=== PATIENT | female | born 1975 | race Caucasian/White ===

== ENCOUNTER 2017-04-30 16:00 | Emergency (ER) | payer MEDICAID, OTHER ==
[~2017-04-30] VITALS: Ht 160 cm; Wt 78.0 kg
[~2017-04-30 16:00] MED LIST: CAPT12.52 PO; METO25TA7 PO
[2017-04-30 16:03] VITALS: Ht 160 cm; Wt 78.0 kg
[2017-04-30] MEDS ORDERED: morphine 4 MG/ML VIAL IV STA (16:39)
[2017-04-30] MEDS ORDERED: SOD CHLORIDE 0.9% 100 ML IV STA (16:39)
[2017-04-30] MEDS ORDERED: ONDANSETRON 4 MG INJ IV STA (16:39)
--- NOTE | 2017-04-30 16:47 | ERD ---
ER Documentation Chief Complaint Date/Time DATE: 04/30/17 TIME: 16:30 Chief Complaint HEADACHE, ABDOMINAL PAIN AND CHEST PAIN X 3 DAYS HPI 41-year-old female history of hypertension and type 2 diabetes mellitus presents to the ED complaining of a 3 day history of worsening, generalized, crampy, nonradiating abdominal pain which localizes to the epigastrium with nausea and one episode of nonbloody, nonbilious emesis and several episodes of watery, nonbloody, nonmucoid diarrhea. Polyuria but no dysuria or hematuria. No relieving or exacerbating factors. No ill contacts, recent travel or spelled food exposure. Denies chest pain or palpitations. No shortness of breath or cough. Mild, gradual onset, generalized headache but no neck or back pain. No visual changes, focal weakness or numbness. No skin rash. No anorexia, night sweats or weight loss. No fevers or chills. ROS All systems reviewed and are negative except as per history of present illness. Medications Home Meds Active Scripts Ondansetron Hcl* (Zofran*) 4 Mg Tablet, 4 MG PO Q6H for NAUSEA AND/OR VOMITING, #12 TAB Prov:BETH LAWRENCE MD 04/30/17 Pantoprazole* (Protonix*) 40 Mg Tablet.dr, 40 MG PO DAILY, #14 TAB Prov:BETH LAWRENCE MD 04/30/17 Reported Medications Acetaminophen/Aspirin/Caffeine* (Excedrin*) 1 Tab Tab, 1 TAB PO DAILY Y for MIGRAINE, TAB 04/30/17 Ibuprofen* (Ibuprofen*) 400 Mg Tablet, 400 MG PO Q6H Y for PAIN, TAB 04/30/17 Metformin* (Glucophage*) 500 Mg Tab, 500 MG PO WITH BREAKFAST, #30 TAB 04/30/17 Discontinued Reported Medications Captopril* (Captopril*) Unknown Strength Tablet, PO TID, #90 TAB 05/04/16 Metoprolol Succinate* (Toprol XL*) Unknown Strength Tab.sr.24h, PO DAILY, #90 TAB 05/04/16 Allergies Allergies: Coded Allergies: No Known Drug Allergies (Verified Allergy, Unknown, 04/30/17) PMhx/Soc Reviewed in chart. As per HPI. History of Surgery: Yes (hysterectomy, pacemaker with subsequent removal, breast biopsy) Anesthesia Reaction: No Hx Neurological Disorder: No Hx Respiratory Disorders: No Hx Cardiac Disorders: No Hx Psychiatric Problems: No Hx Miscellaneous Medical Probl: Yes (le varicesm, sinusitis, dm) Hx Alcohol Use: No Hx Substance Use: No Hx Tobacco Use: No Smoking Status: Unknown if ever smoked FmHx Father: Cancer. No family history of diabetes or stroke Physical Exam Vitals Vital Signs Date Time Temp Pulse Resp B/P Pulse Ox O2 Delivery O2 Flow Rate FiO2 04/30/17 19:32 97.8 80 12 117/69 100 Room Air 04/30/17 18:18 70 20 128/71 100 Room Air 04/30/17 16:46 86 22 119/67 100 Room Air 04/30/17 16:03 97.4 83 18 122/60 99 Physical Exam Const: Alert, mild distress due to pain. Head: Atraumatic Eyes: Normal Conjunctiva. Anicteric. ENT: Normal External Ears, Nose and Mouth. Neck: Full range of motion. Nontender. No JVD. Resp: Breath sounds are equal and clear to auscultation bilaterally Cardio: Regular rate and rhythm, no murmurs Abd: Soft, obese, mild epigastric and right upper quadrant tenderness. Negative La sign. No right or left lower quadrant tenderness. non distended. Normal bowel sounds Skin: No petechiae or rashes Back: No midline or flank tenderness Ext: No cyanosis, or edema Neur: Awake and alert. No focal deficit observed. Psych: Normal Mood and Affect Result Diagram: 04/30/17 1710 04/30/17 1710 Results 24 hrs Laboratory Tests Test 04/30/17 17:10 White Blood Count 8.910^3/ul Red Blood Count 4.8310^6/ul Hemoglobin 13.7g/dl Hematocrit 42.0% Mean Corpuscular Volume 87.0fl Mean Corpuscular Hemoglobin 28.4pg Mean Corpuscular Hemoglobin Concent 32.6g/dl Red Cell Distribution Width 13.3% Platelet Count 58987^3/UL Mean Platelet Volume 9.6fl Neutrophils % 58.1% Lymphocytes % 34.6% Monocytes % 5.2% Eosinophils % 1.2% Basophils % 0.6% Nucleated Red Blood Cells % 0.0/100WBC Neutrophils # 5.210^3/ul Lymphocytes # 3.110^3/ul Monocytes # 0.510^3/ul Eosinophils # 0.110^3/ul Basophils # 0.110^3/ul Nucleated Red Blood Cells # 0.010^3/ul Urine Color YELLOW Urine Clarity CLOUDY Urine pH 5.0 Urine Specific [place] 1.032 Urine Ketones NEGATIVEmg/dL Urine Nitrite NEGATIVEmg/dL Urine Bilirubin NEGATIVEmg/dL Urine Urobilinogen NEGATIVEmg/dL Urine Leukocyte Esterase NEGATIVELeu/ul Urine Microscopic RBC 2/HPF Urine Microscopic WBC 1/HPF Urine Squamous Epithelial Cells MODERATE/HPF Urine Mucus MODERATE/HPF Urine Hemoglobin NEGATIVEmg/dL Urine Glucose NEGATIVEmg/dL Urine Total Protein NEGATIVEmg/dl Sodium Level 141mmol/L Potassium Level 3.5mmol/L Chloride Level 104mmol/L Carbon Dioxide Level 26mmol/L Anion Gap 15 Blood Urea Nitrogen 16mg/dl Creatinine 0.72mg/dl Glucose Level 97mg/dl Calcium Level 9.5mg/dl Total Bilirubin 0.1mg/dl Direct Bilirubin 0.00mg/dl Indirect Bilirubin 0.1mg/dl Aspartate Amino Transf (AST/SGOT) 22IU/L Alanine Aminotransferase (ALT/SGPT) 38IU/L Alkaline Phosphatase 86IU/L Troponin I < 0.012ng/ml Total Protein 8.1g/dl Albumin 4.8g/dl Globulin 3.30g/dl Albumin/Globulin Ratio 1.45 Lipase 245U/L Current Medications Medications (Trade) Dose Ordered Sig/Tova Route PRN Reason Start Time Stop Time Status Last Admin Dose Admin Sodium Chloride (NS) 100 ml @ 100 mls/hr Q1H STAT IV 04/30/17 16:39 04/30/17 17:38 DC Morphine Sulfate (morphine) 4 mg ONCE STAT IV 04/30/17 16:39 04/30/17 16:42 DC Ondansetron HCl (Zofran Inj) 4 mg ONCE STAT IV 04/30/17 16:39 04/30/17 16:42 DC 04/30/17 17:03 Pantoprazole 40 mg 40 mg ONCE ONCE IV 04/30/17 17:00 04/30/17 17:01 DC 04/30/17 17:03 Sodium Chloride (NS) 1,000 ml @ 1,000 mls/hr Q1H STAT IV 04/30/17 16:56 04/30/17 17:55 DC 04/30/17 17:02 IV Flush 10 ml 10 ml STK-MED ONCE .ROUTE 04/30/17 19:02 04/30/17 19:03 DC 04/30/17 19:15 Sodium Chloride (NS) 100 ml @ ud STK-MED ONCE .ROUTE 04/30/17 19:03 04/30/17 19:04 DC 04/30/17 19:16 Iodixanol (Visipaque Locm) 100 ml STK-MED ONCE .ROUTE 04/30/17 19:03 04/30/17 19:04 DC 04/30/17 19:16 EKG: TIME: 16:07. Sinus rhythm. Ventricular rate 82. Right axis deviation. Normal [place] QRS. No ST segment elevation or depression. EP Interpretation: Borderline ECG. IMAGING: PROCEDURE: US Abdomen Limited . CLINICAL INDICATION: Abdominal pain TECHNIQUE: Multiple real-time images were acquired of the patient's right upper quadrant abdomen utilizing a high resolution transducer. COMPARISON: None FINDINGS: The liver measures 20.1 cm and demonstrates a coarsened echogenicity. The gallbladder is filled with a small amount of bile. No shadowing echogenic stones or masses are seen in the gallbladder. The gallbladder wall is not thickened at 1.3 mm. No pericholecystic fluid is noted. The common bile duct measures 3.0 mm in diameter. The visualized portions of the proximal pancreas are unremarkable. The tail of the pancreas is not well visualized. Antegrade flow is seen in the portal vein. Right kidney measures 9.4 cm. Right kidney demonstrates a normal echogenicity. No hydronephrosis, masses or stones are noted. IMPRESSION: Diffuse fatty infiltration of a mildly enlarged liver. Contracted, but otherwise unremarkable gallbladder. Tail of the pancreas not well visualized. If characterization of this structure is needed repeat exam or CT/MRI is recommended. RPTAT: AA .Manish Abarca MD, Date Time Electronically viewed and signed by .Manish Abarca MD, MD on 04/30/2017 17:11 .P/ PROCEDURE: CT Abdomen and Pelvis with contrast. CLINICAL INDICATION: Abdominal pain. TECHNIQUE: CT scan of the abdomen and pelvis with contrast was performed on a multi-detector high-resolution CT scanner. The patient was scanned following the uncomplicated intravenous administration of 100 cc of Visipaque 320. Coronal and sagittal reformatted images were obtained from the axial source images. One or more of the following dose reduction techniques were used: Automated exposure control, adjustment of the mA and/or kV according to patient size, use of iterative reconstruction technique. Images were reviewed on a high -resolution PACS workstation. The total exam CTDI equals 14.44 mGy and the total exam DLP equals 780.59 mGy-cm. COMPARISON: None available. FINDINGS: CT abdomen: Minimal bilateral lower lobe dependent atelectatic changes are present. Otherwise, the lung bases are clear. The heart size is normal, without pericardial thickening or effusion. The liver is enlarged measuring 20 cm without focal mass or intrahepatic biliary dilatation. The spleen is normal in size and homogeneous in density. The stomach is partially collapsed, but is grossly unremarkable. The pancreas as visualized is normal. The gallbladder is unremarkable. The biliary tree is unremarkable without evidence for biliary dilatation. The adrenal glands are symmetric and normal. The kidneys are unremarkable. No renal calculus or obstructive uropathy or mass lesion is seen. The aorta is of normal caliber. There is no retroperitoneal lymphadenopathy. The ishaan hepatis region is clear. The small bowel and mesentery, as visualized , are unremarkable. CT pelvis: The small bowel loops situated within the pelvis are unremarkable. The uterus is surgically absent. There is a 4.5 x 8.0 x 4.4 cm rodriguez-shaped cystic lesion in the right adnexa, likely arising from the right ovary. The left ovary appears unremarkable. The pelvic sidewalls and inguinal regions are clear. The sigmoid colon and rectum are unremarkable. The appendix appears normal. The tip of the appendix abuts the above described mimics a cystic lesion. The cystic lesion most likely arises from the right ovary, less likely from the tip of the appendix. No solid mass, lymphadenopathy, or free fluid is seen. The bladder is normal. The surrounding osseous structures are unremarkable. No osteolytic or osteoblastic lesion is detected. IMPRESSION: 1. Status post hysterectomy with 4.5 x 8.0 x 4.4 cm right adnexal cystic lesion which most likely arises from the right ovary, less likely from the tip of the appendix (which is otherwise normal appearing). Initial further evaluation with ultrasound or pelvic MRI with contrast is recommended. 2. Hepatomegaly. RPTAT: QQ .Jiame Wilcox MD, MD Date Time Electronically viewed and signed by .Jaime Wilcox MD, MD on 04/30/2017 19:31 .A/ PROCEDURE: US Non-OB Pelvis. CLINICAL INDICATION: Abdominal pain, history of hysterectomy and left oophorectomy. TECHNIQUE: Multiple sonographic images of the pelvis were obtained utilizing a transabdominal and endovaginal technique. The images were reviewed on a PACS workstation. COMPARISON: None. FINDINGS: The uterus and left ovary are not visualized. A normal right ovary is not visualized There is a 7.1 x 3.7 x 6.4 cm simple cyst in the right adnexa with peripheral vascularity. There is no evidence of free fluid. IMPRESSION: 1. A normal right ovary is not visualized. There is a 7.1 cm simple right adnexal cyst with peripheral vascularity, possibly a right ovarian cyst. 2. Status post hysterectomy and left oophorectomy. RPTAT: HTAR .Jeanmarie William MD, Date Time Electronically viewed and signed by .Jeanmarie William MD, on 04/30/2017 21:04 .R/ Procedures/MDM DOCUMENTS REVIEWED: ED nurse, prior ED ED COURSE: Normal saline 1 L. Zofran 4 mg IV and Protonix 40 mg IV. Refused morphine. REEXAMINATION/REEVALUATION: Time: 18:00. Doing well. Feels better but still feels distended. MEDICAL DECISION MAKIN-year-old female history of hypertension and type 2 diabetes mellitus presents to the ED complaining of a 3 day history abdominal pain with nausea, vomiting and diarrhea. Triage note indicated chest pain however the patient denied this and localizes her pain to the epigastrium. Ultrasound reveals fatty liver but no evidence of cholelithiasis or cholecystitis. No CT evidence of acute intra-abdominal process including but not limited to obstruction, appendicitis, diverticulitis, mass or mesenteric ischemia. Abdominal exam is benign without rebound, guarding or signs of peritonitis. Possible gastritis/GERD as her symptoms improved with proton pump inhibitors. Possible mild gastroenteritis likely viral although foodborne illness and bacterial etiologies were considered. Right ovarian cyst without evidence of torsion. No chest pain, ischemic EKG changes or other signs of acute coronary syndrome. Mild cephalgia resolved. Presentation not consistent with subarachnoid hemorrhage, there are no focal deficits or indication for neuroimaging. Stable for discharge with proton pump inhibitors, precautionary instructions and outpatient follow-up as counseled. Counseled patient and family regarding diagnostic workup, diagnosis and need for followup. Understands to return to ED if symptoms recur, worsen or any other concerns. Departure Diagnosis: Primary Impression: Acute generalized abdominal pain Additional Impressions: Abdominal pain of unknown etiology Right ovarian cyst Acute gastritis without bleeding Gastritis type: unspecified gastritis Qualified Code: K29.00 - Acute gastritis without hemorrhage, unspecified gastritis type Condition: Stable (Improved) BETH LAWRENCE MD Apr 30, 2017 16:47
[2017-04-30] MEDS ORDERED: IBUP400T22 PO (16:50)
[2017-04-30] MEDS ORDERED: EXCED PO (16:50)
[2017-04-30] MEDS ORDERED: METF500T4 PO (16:50)
[2017-04-30] MEDS ORDERED: SOD CHLORIDE 0.9% 1,000 ML IV STA (16:56)
[2017-04-30] MEDS ORDERED: PANTOPRAZOLE 40 MG INJ IV ONE (17:00)
--- NOTE | 2017-04-30 17:11 | RADRPT ---
PROCEDURE: US Abdomen Limited . CLINICAL INDICATION: Abdominal pain TECHNIQUE: Multiple real-time images were acquired of the patient's right upper quadrant abdomen u tilizing a high resolution transducer. COMPARISON: None FINDINGS: The liver measures 20.1 cm and demonstrates a coarsened echogenicity. The gallbladder is filled with a small amount of bile. No shadowing echogenic stones or masses are seen in the gallbladder. The g allbladder wall is not thickened at 1.3 mm. No pericholecystic fluid is noted. The common bile duct measures 3.0 mm in diameter. The visualized portions of the proximal pancreas are unremarkable. The tail of the pancreas is not well visualized. Antegrade flow is seen in the portal vein. Right kidney measures 9.4 cm. Right kidney demonstrates a normal echogenicity. No hydronephrosis, masses or stones are noted. IMPRESSION: Diffuse fatty infiltration of a mildly enlarged liver. Contracted, but otherwise unremarkable gallbladder. Tail of the pancreas not well visualized. If characterization of this structure is needed repeat exa m or CT/MRI is recommended. RPTAT: AA .Manish Abarca MD, MD Date Time Electronically viewed and signed by .Manish Abarca MD, MD on 04/30/2017 17:11 .P/
[2017-04-30 17:23] LABS: BASOPHIL # 0.1 10^3/ul (0.0-0.1); BASOPHILS % 0.6 % (0.0-2.0); EOSINOPHILS # 0.1 10^3/ul (0.0-0.5); EOSINOPHILS % 1.2 % (0.0-7.0); HEMOGLOBIN 13.7 g/dl (12.0-16.0); LYMPHOCYTES # 3.1 10^3/ul (0.8-2.9); LYMPHOCYTES % 34.6 % (15.0-51.0); MEAN CORPUSCULAR HEMOGLOBIN 28.4 pg (29.0-33.0); MEAN CORPUSCULAR HGB CONC 32.6 g/dl (32.0-37.0); MEAN PLATELET VOLUME 9.6 fl (7.4-10.4); MONOCYTE # 0.5 10^3/ul (0.3-0.9); MONOCYTES % 5.2 % (0.0-11.0); NEUTROPHIL # 5.2 10^3/ul (1.6-7.5); NEUTROPHILS % 58.1 % (39.0-77.0); PLATELET COUNT 394 10^3/UL (140-415); RED BLOOD COUNT 4.83 10^6/ul (4.20-5.40); RED CELL DISTRIBUTION WIDTH 13.3 % (11.5-14.5); WHITE BLOOD COUNT 8.9 10^3/ul (4.8-10.8)
[2017-04-30 17:37] LABS: ADD UMIC YES; UR ASCORBIC ACID 40 mg/dL (NEGATIVE); UR BILIRUBIN (Dip) NEGATIVE (NEGATIVE); UR BLOOD (Dip) NEGATIVE (NEGATIVE); UR CLARITY CLOUDY (CLEAR); UR COLOR YELLOW (YELLOW); UR GLUCOSE (Dip) NEGATIVE (NEGATIVE); UR KETONES (Dip) NEGATIVE (NEGATIVE); UR LEUKOCYTE ESTERASE (Dip) NEGATIVE Leu/ul (NEGATIVE); UR MUCUS MODERATE /HPF (NONE SEEN); UR NITRITE (Dip) NEGATIVE (NEGATIVE); UR RBC 2 /HPF (0-5); UR SPECIFIC GRAVITY (Dip) 1.032 (1.003-1.030); UR SQUAMOUS EPITHELIAL CELL MODERATE /HPF (FEW); UR TOTAL PROTEIN (Dip) NEGATIVE (NEGATIVE); UR UROBILINOGEN (Dip) NEGATIVE (NEGATIVE)
[2017-04-30 17:39] LABS: ADD SCAN DIFF NO
[2017-04-30 17:47] LABS: ALANINE AMINOTRANSFERASE 38 IU/L (13-69); ALBUMIN 4.8 g/dl (3.3-4.9); ALBUMIN/GLOBULIN RATIO 1.45; ALKALINE PHOSPHATASE 86 IU/L (42-121); ANION GAP 15 (8-16); ASPARTATE AMINO TRANSFERASE 22 IU/L (15-46); BILIRUBIN,INDIRECT 0.1 mg/dl (0-1.1); BILIRUBIN,TOTAL 0.1 mg/dl (0.2-1.3); BLOOD UREA NITROGEN 16 mg/dl (7-20); CALCIUM 9.5 mg/dl (8.4-10.2); CARBON DIOXIDE 26 mmol/L (21-31); CHLORIDE 104 mmol/L (97-110); CREATININE 0.72 mg/dl (0.44-1.00); GLUCOSE 97 mg/dl (70-220); POTASSIUM 3.5 mmol/L (3.5-5.1); SODIUM 141 mmol/L (135-144); TOTAL PROTEIN 8.1 g/dl (6.1-8.1)
[2017-04-30 18:01] LABS: TROPONIN-I < 0.012 ng/ml (0.00-0.12)
[2017-04-30] MEDS ORDERED: SOD CHLORIDE 0.9% 100 ML ONE (19:03)
[2017-04-30] MEDS ORDERED: IODIXANOL LOCM 100 ML BTL ONE (19:03)
--- NOTE | 2017-04-30 19:31 | RADRPT ---
PROCEDURE: CT Abdomen and Pelvis with contrast. CLINICAL INDICATION: Abdominal pain. TECHNIQUE: CT scan of the abdomen and pelvis with contrast was performed on a multi-detector high- resolution CT scanner. The patient was scanned following the uncomplicated intravenous administrati on of 100 cc of Visipaque 320. Coronal and sagittal reformatted images were obtained from the axial source images. One or more of the following dose reduction techniques were used: Automated exposur e control, adjustment of the mA and/or kV according to patient size, use of iterative reconstructio n technique. Images were reviewed on a high-resolution PACS workstation. The total exam CTDI equals 14.44 mGy and the total exam DLP equals 780.59 mGy-cm. COMPARISON: None available. FINDINGS: CT abdomen: Minimal bilateral lower lobe dependent atelectatic changes are present. Otherwise, the lung bases are clear. The heart size is normal, without pericardial thickening or effusion. The liver is enlarged measuring 20 cm without focal mass or intrahepatic biliary dilatation. The sp erum is normal in size and homogeneous in density. The stomach is partially collapsed, but is gross ly unremarkable. The pancreas as visualized is normal. The gallbladder is unremarkable. The bilia ry tree is unremarkable without evidence for biliary dilatation. The adrenal glands are symmetric a nd normal. The kidneys are unremarkable. No renal calculus or obstructive uropathy or mass lesion is seen. The aorta is of normal caliber. There is no retroperitoneal lymphadenopathy. The ishaan hepatis re gion is clear. The small bowel and mesentery, as visualized, are unremarkable. CT pelvis: The small bowel loops situated within the pelvis are unremarkable. The uterus is surgically absent. There is a 4.5 x 8.0 x 4.4 cm rodriguez-shaped cystic lesion in the right adnexa, likely arising from t he right ovary. The left ovary appears unremarkable. The pelvic sidewalls and inguinal regions are clear. The sigmoid colon and rectum are unremarkable. The appendix appears normal. The tip of the appendix abuts the above described mimics a cystic lesion. The cystic lesion most likely arises fr om the right ovary, less likely from the tip of the appendix. No solid mass, lymphadenopathy, or escobar e fluid is seen. The bladder is normal. The surrounding osseous structures are unremarkable. No osteolytic or osteoblastic lesion is detect ed. IMPRESSION: 1. Status post hysterectomy with 4.5 x 8.0 x 4.4 cm right adnexal cystic lesion which most likely a rises from the right ovary, less likely from the tip of the appendix (which is otherwise normal apprenard bonilla). Initial further evaluation with ultrasound or pelvic MRI with contrast is recommended. 2. Hepatomegaly. RPTAT: QQ .Jaime Wilcox MD, MD Date Time Electronically viewed and signed by .Jaime Wilcox MD, MD on 04/30/2017 19:31 .A/
[2017-04-30 19:32] VITALS: BP 117/69; PULSE 80; RESP 12; TEMP 97.8
--- NOTE | 2017-04-30 21:04 | RADRPT ---
PROCEDURE: US Non-OB Pelvis. CLINICAL INDICATION: Abdominal pain, history of hysterectomy and left oophorectomy. TECHNIQUE: Multiple sonographic images of the pelvis were obtained utilizing a transabdominal and endovaginal technique. The images were reviewed on a PACS workstation. COMPARISON: None. FINDINGS: The uterus and left ovary are not visualized. A normal right ovary is not visualized There is a 7.1 x 3.7 x 6.4 cm simple cyst in the right adnexa with peripheral vascularity. There is no evidence o f free fluid. IMPRESSION: 1. A normal right ovary is not visualized. There is a 7.1 cm simple right adnexal cyst with periph eral vascularity, possibly a right ovarian cyst. 2. Status post hysterectomy and left oophorectomy. RPTAT: HTAR .Jeanmarie William MD, Date Time Electronically viewed and signed by .Jeanmarie William MD, on 04/30/2017 21:04 .R/
[2017-04-30] MEDS ORDERED: PANT40TA3 PO (21:28)
[2017-04-30] MEDS ORDERED: ONDA4TAB8 PO (21:29)
== END 2017-04-30 22:06 | disposition home or self-care (01) ==
LOC: E/R 16:00
DX: R10.84 Generalized abdominal pain (principal); N83.201 Unspecified ovarian cyst, right side; K29.00 Acute gastritis without bleeding; R11.2 Nausea with vomiting, unspecified; I10 Essential (primary) hypertension; E11.9 Type 2 diabetes mellitus without complications; E66.9 Obesity, unspecified; Z68.30 Body mass index [BMI] 30.0-30.9, adult; Z79.84 Long term (current) use of oral hypoglycemic drugs; Z95.0 Presence of cardiac pacemaker
CPT/HCPCS: 74177; 76705; 76856; 80053; 81001; 83690; 84484; 85025; 93005; C9113; J2405; J7030; J7040; Q9967; Z7610; 36415; 96374; 96375; J2270

== ENCOUNTER 2019-05-31 22:56 | Emergency (ER) | payer MEDICAID, OTHER ==
[~2019-05-31] VITALS: Ht 167.6 cm; Wt 98.9 kg
[~2019-05-31 22:56] MED LIST changes: -CAPT12.52 PO; +EXCED PO; +IBUP-1541 PO; +IBUP-1542 PO; +METF-849 PO; -METO25TA7 PO; +METR-121 PO; +ONDA4TAB8 PO; +PANT40TA3 PO
[2019-05-31 23:03] VITALS: Ht 167.6 cm; Wt 98.9 kg
--- NOTE | 2019-06-01 00:42 | ERD ---
ER Documentation Chief Complaint Chief Complaint WEAKNESS IN LEFT ARM AND C/O NASAL CONGESTION HPI This is a 44-year-old female who presents to the emergency room for evaluation of multiple complaints including anxiety, difficulty sleeping, and paresthesias in the left arm and left leg for the past 24 hours. The patient denies any chest pain but does state that she checked her blood pressure at home and it was elevated. She does take medicine for high blood pressure and states that today her blood pressure was a little high and she felt anxious. The patient denies any chest pain, shortness of breath, nausea, vomiting or diaphoresis. She denies any aggravating or relieving factors for her symptoms and came to the ER for evaluation ROS All systems reviewed and are negative except as per history of present illness. Medications Home Meds Active Scripts Ibuprofen* (Ibuprofen*) 600 Mg Tablet, 600 MG PO Q6H PRN for PAIN, #30 TAB Prov:ADARSH ACOSTA DO 07/10/18 Metronidazole (Flagyl) 500 Mg Tab, 500 MG PO Q8 for 7 Days, #21 TAB Prov:ADARSH ACOSTA DO 07/10/18 Ondansetron Hcl* (Zofran*) 4 Mg Tablet, 4 MG PO Q6H for NAUSEA AND/OR VOMITING, #12 TAB Prov:BETH LAWRENCE MD 04/30/17 Pantoprazole* (Protonix*) 40 Mg Tablet.dr, 40 MG PO DAILY, #14 TAB Prov:BETH LAWRENCE MD 04/30/17 Reported Medications Acetaminophen/Aspirin/Caffeine* (Excedrin*) 1 Tab Tab, 1 TAB PO DAILY PRN for MIGRAINE, TAB 04/30/17 Ibuprofen* (Ibuprofen*) 400 Mg Tablet, 400 MG PO Q6H PRN for PAIN, TAB 04/30/17 Metformin* (Glucophage*) 500 Mg Tab, 500 MG PO WITH BREAKFAST, #30 TAB 04/30/17 Allergies Allergies: Coded Allergies: No Known Drug Allergies (Verified Allergy, Unknown, 04/30/17) PMhx/Soc History of Surgery: Yes (hysterectomy, pacemaker with subsequent removal, breast biopsy) Anesthesia Reaction: No Hx Neurological Disorder: No Hx Respiratory Disorders: No Hx Cardiac Disorders: No Hx Psychiatric Problems: No Hx Miscellaneous Medical Probl: Yes (le varicesm, sinusitis, dm) Hx Alcohol Use: No Hx Substance Use: No Hx Tobacco Use: No Smoking Status: Never smoker Physical Exam Vitals Vital Signs Date Temp Pulse Resp B/P (MAP) Pulse Ox O2 O2 Flow FiO2 Time Delivery Rate 05/31/19 98.9 95 18 164/80 96 23:03 (108) Physical Exam INITIAL VITAL SIGNS: Reviewed by me GENERAL: The patient is well developed and appropriate for usual state of health in no apparent distress HEENT: Pupils equal, round, and reactive to light. EOMI. There is no scleral icterus. NECK: C-spine is soft and supple, there is no meningismus. There is no cervical lymphadenopathy. LUNGS: Clear to auscultation bilaterally. There are no rales, wheezes or rhonchi. HEART: Regular rate and rhythm, no murmurs, clicks, rubs or gallops. ABDOMEN: Soft, non-tender, non-distended. There are bowel sounds in all four quadrants. No rebound or guarding. EXTREMITIES: There is no peripheral cyanosis or edema. No focal swelling or erythema. NEUROLOGICAL: The patient moves all four extremities with 5/5 strength. Cranial nerves II - XII are intact. Normal gait. Alert and oriented to person place and time, GCS 15, NIH stroke scale of 0 SKIN: There is no apparent rash or petechiae. HEME/LYMPHATIC: There is no evidence of excessive bruising or lymphedema. PSYCHIATRIC: The patient does appear to be anxious Result Diagram: 05/31/19 2331 05/31/19 2331 Results 24 hrs Laboratory Tests Test 05/31/19 23:31 05/31/19 23:58 06/01/19 00:03 White Blood Count 9.9 10^3/ul Red Blood Count 4.81 10^6/ul Hemoglobin 13.2 g/dl Hematocrit 41.4 % Mean Corpuscular Volume 86.1 fl Mean Corpuscular Hemoglobin 27.4 pg Mean Corpuscular Hemoglobin Concent 31.9 g/dl Red Cell Distribution Width 13.6 % Platelet Count 411 10^3/UL Mean Platelet Volume 8.8 fl Immature Granulocytes % 0.400 % Neutrophils % 54.6 % Lymphocytes % 38.1 % Monocytes % 5.4 % Eosinophils % 1.0 % Basophils % 0.5 % Nucleated Red Blood Cells % 0.0 /100WBC Immature Granulocytes # 0.040 10^3/ul Neutrophils # 5.4 10^3/ul Lymphocytes # 3.8 10^3/ul Monocytes # 0.5 10^3/ul Eosinophils # 0.1 10^3/ul Basophils # 0.1 10^3/ul Nucleated Red Blood Cells # 0.0 10^3/ul Sodium Level 142 mmol/L Potassium Level 4.1 mmol/L Chloride Level 105 mmol/L Carbon Dioxide Level 27 mmol/L Anion Gap 10 Blood Urea Nitrogen 14 mg/dl Creatinine 0.64 mg/dl Est Glomerular Filtrat Rate mL/min > 60 mL/min Glucose Level 119 mg/dl Calcium Level 9.6 mg/dl Total Bilirubin 0.3 mg/dl Direct Bilirubin 0.00 mg/dl Indirect Bilirubin 0.3 mg/dl Aspartate Amino Transf (AST/SGOT) 36 IU/L Alanine Aminotransferase (ALT/SGPT) 75 IU/L Alkaline Phosphatase 105 IU/L Troponin I < 0.012 ng/ml Total Protein 8.0 g/dl Albumin 4.4 g/dl Globulin 3.60 g/dl Albumin/Globulin Ratio 1.22 Salicylates Level < 1.0 mg/dl Acetaminophen Level < 10.0 ug/ml Ethyl Alcohol Level < 10.0 mg/dl POC Venous Lactate 2.2 mmol/L Bedside Glucose 105 mg/dL Current Medications Medications Dose Sig/Tova Start Time Status Last (Trade) Ordered Route PRN Stop Time Admin Dose Reason Admin Lorazepam 0.5 mg ONCE ONCE 06/01/19 (Ativan) PO 01:00 06/01/19 01:01 Procedures/MDM CT brain without: No stroke Chest X-ray 1V Interpreted by me: Soft Tissue: No acute abnormalities Bones: No acute abnormalities Mediastinum/Cardiac Silhouette/Lungs: [No acute abnormalities] EKG: Rate/Rhythm: [Normal Sinus Rhythm] QRS, ST, T-waves: [No changes consistent w/ acute ischemia] Impression: [No evidence of ischemia or arrhythmia] This 44-year-old female presents the ER for evaluation of multiple complaints including left arm and left leg numbness, anxiety, high blood pressure, and inability to sleep. On my exam the patient appears anxious however she had no focal neurological deficits. The patient's lab work does not show any acute abnormalities. Her CT of the brain is normal, chest x-ray is clear. On reevaluation is patient's blood pressure is 143/74. She does state that her paresthesias have improved. The patient states that she would like some medicine to help her sleep. I do feel that there is a strong component of anxiety and I advised her I do not feel comfortable writing her anxiolytic medication and that is something she will need to talk to her physician about. Both her and her verbalized understanding. She was given 1 tab of Ativ an in the emergency room and will be discharged with outpatient neurology follow-up for paresthesias. Departure Diagnosis: Primary Impression: Paresthesias Additional Impressions: Hypertension Anxiety Condition: Fair FAITH MCGILL DO Jun 01, 2019 00:42
[2019-06-01 00:54] VITALS: BP 143/93; PULSE 84; RESP 15
[2019-06-01] MEDS ORDERED: LORAZEPAM 0.5 MG TAB PO ONE (01:00)
== END 2019-06-01 00:54 | disposition home or self-care (01) ==
LOC: E/R 22:56
DX: I10 Essential (primary) hypertension (principal); R20.2 Paresthesia of skin; F41.9 Anxiety disorder, unspecified; E11.9 Type 2 diabetes mellitus without complications; Z79.84 Long term (current) use of oral hypoglycemic drugs; Z95.0 Presence of cardiac pacemaker
CPT/HCPCS: 36415; 70450; 71045; 80053; 80307; 82962; 83605; 84484; 85025; Z7502; Z7610; 93005